=== PATIENT | male | born 2000 | race Caucasian/White ===

== ENCOUNTER 2022-08-03 19:49 | Emergency (ER) | payer OTHER, SELFPAY ==
[2022-08-03 20:01] VITALS: BP 147/89; PULSE 128; RESP 20; TEMP 38; O2SAT 100
[2022-08-03 20:37] LABS: Strep Group A RT-PCR NOT DETECTED (Negative)
[2022-08-03 20:48] LABS: Influenza A QL RT-PCR Negative (Negative); Influenza B QL RT-PCR Negative (Negative); SARS-CoV-2 RNA PCR Negative
[2022-08-03] MEDS: SODIUM CHLORIDE 0.9% IV 1,000 ML 999 ML IV CONT (20:54)
[2022-08-03] MEDS: ACETAMINOPHEN 500 MG TABLET 1000 MG PO (20:54)
[2022-08-03 21:01] LABS: Basophils Percent Auto 0.2 % (0.2-1.2); Eosinophils Percent Auto 0.1 % (0-4.4); Hematocrit 46.3 % (42.0-52.0); Hemoglobin 14.8 g/dL (14.0-18.0); Immature Granulocyte Absolute 0.05 K/mm3 (0.00-0.031); Immature Granulocyte Percent A 0.5 % (0-0.5); Lymphocytes Absolute Auto 0.67 K/mm3 (0.9-3.2); Lymphocytes Percent Auto 6.1 % (18.3-44.2); Mean Corpuscular Volume 84.3 fl (80-100); Mean Platelet Volume 10.7 fl (7.4-10.4); Monocytes Absolute Auto 0.4 K/mm3 (0.1-0.6); Monocytes Percent Auto 3.3 % (2.6-8.5); Neutrophils Percent Auto 89.8 % (45.5-73.1); Platelet Count Result 306 k/mm3 (150-375); Red Blood Count 5.49 M/mm3 (4.6-6.20); Red Cell Distribution Width 13.9 % (11.5-14.5); White Blood Count 11.1 K/mm3 (4.5-10.0)
[2022-08-03 21:11] LABS: Lactic Acid Reflex 1.2 mmol/L (0.7-2.0)
[2022-08-03 21:12] LABS: Alanine Aminotransferase 25 U/L (6-50); Albumin Level 4.5 g/dL (3.5-5.1); Alkaline Phosphatase 62 U/L (38-126); Anion Gap 12 mmol/L (8-16); Aspartate Amino Transferase 25 U/L (17-59); Bilirubin,Total 0.8 mg/dL (0.2-1.3); Blood Urea Nitrogen 11 mg/dL (9-20); Calcium 8.4 mg/dL (8.4-10.2); Carbon Dioxide 23 mmol/L (22-30); Chloride 102 mmol/L (98-107); Estimated CRCL calculation 136 ml/min; Estimated Glomerular Filt Rate > 60; Glucose 113 mg/dL (65-110); Sodium 137 mmol/L (137-145)
[2022-08-03 21:14] LABS: Appearance Urine Cloudy (Clear); Bacteria Urine None Seen /hpf; Bilirubin Urine Negative (Negative); Blood Urine Negative (Negative); Color Urine Yellow (Yellow); Glucose Urine UA Negative (Negative); Ketones Urine Negative (Negative); Leukocyte Esterase Ur 1+ LEU/UL (Negative); Need Manual Microscopic Reviewed; Nitrate Urine Negative (Negative); Non Pathogenic Casts 0-2; Protein Urine Negative (Negative); Specific Grav Ur 1.025 (1.001-1.035); Squamous Epithelial Cell Urine Occasional /hpf (Few); WBC Urine 0-5 /hpf
[2022-08-03 21:17] LABS: Add Urine Microscopic? YES
[2022-08-03] MEDS: Please add drug allergy info to patient profile. 1 EACH XX (21:23)
--- NOTE | 2022-08-03 21:48 | ED.GENADULT ---
HPI - General Adult General Chief complaint: Upper Respiratory Infection Stated complaint: flu like symptoms Time Seen by Provider: 08/03/22 20:09 History of Present Illness HPI narrative: Patient a 21-year-old that presents the emergency department with chief complaint of fever body aches and generalized malaise. Patient reports that he started having body aches reports that they had generalized malaise reports that he had some mild discomfort in the throat and reports that he also had diarrhea. Patient reports that they did not take any Tylenol or ibuprofen Related Data Allergies Allergy/AdvReac Type Severity Reaction Status Date / Time amoxicillin [From Augmentin] Allergy Rash Verified 08/03/22 21:22 clavulanic acid Allergy Rash Verified 08/03/22 21:22 [From Augmentin] Review of Systems Review of Systems: A 10 system review of systems was completed on the patient and is negative except for what is stated in the HPI. Nursing and ancillary documentation was reviewed. Exam Narrative: GENERAL: Well-appearing, well-nourished, and in no acute distress. HEAD: Normocephalic, atraumatic. EYES: PERRLA and EOMI. ENT: Nares clear, no rhinorrhea or epistaxis. Mucous membranes moist. Tympanic membranes are normal NECK: Supple. No nuchal rigidity CHEST: Clear to auscultation. No respiratory distress. HEART: Regular rate and rhythm. No murmur heard. Normal peripheral pulses. ABDOMEN: Soft, nontender, nondistended, normal active bowel sounds. EXTREMITIES: Normal range of motion. No edema. SKIN: Warm, dry, no rash. NEURO: No focal deficits. Alert and oriented x3. PSYCH: Normal mood and affect. Course Vital Signs Vital signs: Vital Signs Temperature 38.0 C H 08/03/22 20:01 Pulse Rate 128 H 08/03/22 20:01 Respiratory Rate 20 08/03/22 20:01 Blood Pressure 147/89 H 08/03/22 20:01 Pulse Oximetry 100 08/03/22 20:01 Oxygen Delivery Room Air 08/03/22 20:01 Temperature 38.0 C H 08/03/22 20:01 Pulse Rate 128 H 08/03/22 20:01 Respiratory Rate 20 08/03/22 20:01 Blood Pressure 147/89 H 08/03/22 20:01 Pulse Oximetry 100 08/03/22 20:01 Oxygen Delivery Room Air 08/03/22 20:01 Medical Decision Making MDM Narrative Medical decision making narrative: Differential diagnosis includes pneumonia, strep, COVID influenza UTI viral syndrome Laboratory studies were obtained on the patient which showed a white blood cell count of 11.1 lactate was normal 1.2 electrolytes were otherwise within normal limits urinalysis showed 1+ leukocyte esterase but 0-5 white blood cells and no bacteria and negative for nitrate. Patient is feeling much better after IV fluids. Laboratory studies are within normal limits. Patient will be discharged home with instructions for viral syndrome. Vital Signs Vital Signs: Vital Signs Temperature 38.0 C H 08/03/22 20:01 Pulse Rate 128 H 08/03/22 20:01 Respiratory Rate 20 08/03/22 20:01 Blood Pressure 147/89 H 08/03/22 20:01 Pulse Oximetry 100 08/03/22 20:01 Oxygen Delivery Room Air 08/03/22 20:01 Temperature 38.0 C H 08/03/22 20:01 Pulse Rate 128 H 08/03/22 20:01 Respiratory Rate 20 08/03/22 20:01 Blood Pressure 147/89 H 08/03/22 20:01 Pulse Oximetry 100 08/03/22 20:01 Oxygen Delivery Room Air 08/03/22 20:01 Lab Data 08/03/22 20:53 08/03/22 20:53 Labs: Lab Results 08/03/22 08/03/22 08/03/22 Range/Units 20:07 20:07 20:50 WBC (4.5-10.0) K/mm3 RBC (4.6-6.20) M/mm3 Hgb (14.0-18.0) g/dL Hct (42.0-52.0) % MCV (80-100) fl MCH (26-34) pg MCHC (32-36) g/dl RDW (11.5-14.5) % Plt Count (150-375) k/mm3 MPV (7.4-10.4) fl Immature Gran % (Auto) (0-0.5) % Neut % (Auto) (45.5-73.1) % Lymph % (Auto) (18.3-44.2) % [place] % (Auto) (2.6-8.5) % Eos % (Auto) (0-4.4) % Baso % (Auto) (0.2-1.2) % Lymph # (Auto) (0.9-3.2) K/m
[2022-08-03 22:01] VITALS: PULSE 98; RESP 18; O2SAT 100
== END 2022-08-03 22:00 | disposition home or self-care (01) ==
PROVIDERS: Physician Assistant; Emergency Provider Emergency Medicine
DX: B34.9 Viral infection, unspecified (principal); Z20.822 Contact with and (suspected) exposure to COVID-19
CPT/HCPCS: 36415; 80053; 81001; 83605; 85025; 87636; 87651; 96360; 99283; A9270; J7030